=== PATIENT | female | born 1960 | race Caucasian/White ===

== ENCOUNTER 2024-06-17 16:26 | Observation (INO) | payer OTHER, MEDICARE ==
[~2024-06-17] VITALS: Ht 160 cm; Wt 84.3 kg
[~2024-06-17 16:26] MED LIST: NITR100 PO; OMEP20ER PO
[2024-06-17] MEDS ORDERED: NS 1,000 ML IV SCH ×2 (16:35→19:10)
[2024-06-17] MEDS ORDERED: Ketorolac Tromethamine 15mg Vial IV ONE (16:35)
[2024-06-17 16:54] LABS: BASOPHILS ABSOLUTE AUTO 0.04 K/mm3 (0.00-0.23); BASOPHILS PERCENT AUTO 0 % (0-2); EOSINOPHILS ABSOLUTE AUTO 0.01 K/mm3 (0.00-0.68); EOSINOPHILS PERCENT AUTO 0 % (0-6); Hematocrit 40.4 % (33.0-51.0); IMMATURE GRAN ABSOLUTE AUTO 0.05 K/mm3 (0.00-0.10); IMMATURE GRAN PERCENT AUTO 0 % (0-1); LYMPHOCYTES ABSOLUTE AUTO 0.85 K/mm3 (0.84-5.20); LYMPHOCYTES PERCENT AUTO 6 % (21-46); MONOCYTES ABSOLUTE AUTO 0.47 K/mm3 (0.16-1.47); MONOCYTES PERCENT AUTO 3 % (4-13); Mean Corpuscular HGB 24.9 pg (26.0-34.0); Mean Corpuscular HGB Conc 32.2 g/dL (31.5-36.5); Mean Corpuscular Volume 77 fL (80-100); Mean Platelet Volume 11.9 fL (9.1-12.4); NEUTROPHILS ABSOLUTE AUTO 12.78 K/mm3 (1.96-9.15); NEUTROPHILS PERCENT AUTO 90 % (41-73); Platelet Count 255 K/mm3 (150-400); RDW Coefficient Variation 15.6 % (11.7-14.2); RDW Standard Deviation 43.3 fL (35.1-46.3); Red Blood Cell Count 5.23 M/mm3 (3.80-5.20)
[2024-06-17 17:15] LABS: Albumin, Blood 3.7 g/dL (3.4-5.0); Bilirubin, Total 0.7 mg/dL (0.1-1.0); Calcium, Blood 9.3 mg/dL (8.5-10.1); Creatinine, Blood 0.54 mg/dL (0.40-1.00); Globulin, Blood 3.7 g/dL (2.2-4.0); Total Protein, Blood 7.4 g/dL (6.4-8.2)
[2024-06-17] MEDS ORDERED: Piperacillin/Tazobactam Sod 4.5 GM in NS 100 ML IV ONE (18:00)
[2024-06-17] MEDS ORDERED: Ondansetron HCl 2 MG / ML 2ML Vial IV PRN (19:05)
[2024-06-17] MEDS ORDERED: FentaNYL Citrate 50 MCG/ML 2 ML Injection IV PRN (19:05)
[2024-06-17] MEDS ORDERED: Ampicillin Sod/Sulbactam Sod 3 GM in NS 100 ML IV SCH (19:15)
[2024-06-17 21:06] VITALS: BP 154/70
[2024-06-17] MEDS ORDERED: HYDROmorphone HCl/Pf 1MG SYR IV PRN (21:50)
[2024-06-17] MEDS ORDERED: Ondansetron HCl 2 MG / ML 2ML Vial IV ONE (22:15)
[2024-06-18] VITALS (14 sets, daily range): BP systolic 111–140; BP diastolic 47–71
[2024-06-18] MEDS ORDERED: NS 1,000 ML IV SCH (00:50)
[2024-06-18 00:54] LABS: Source, Urine Clean Catch
[2024-06-18 01:02] LABS: Bilirubin, Urine Neg (Neg); Blood, Urine Neg (Neg); Glucose Qualitative, Urine Neg (Neg); Ketones, Urine 2+ (Neg); Leukocyte Esterase, Urine Neg (Neg); Nitrite, Urine Neg (Neg); Protein, Urine 1+ (Neg); Specific Gravity, Urine 1.015 (1.003-1.022); Urobilinogen, Urine NORM (Normal)
[2024-06-18 01:23] LABS: Appearance, Urine Clear (Clear); Color, Urine Yellow (P-Yellow)
[2024-06-18 04:32] LABS: BASOPHILS ABSOLUTE AUTO 0.05 K/mm3 (0.00-0.23); BASOPHILS PERCENT AUTO 1 % (0-2); EOSINOPHILS ABSOLUTE AUTO 0.05 K/mm3 (0.00-0.68); EOSINOPHILS PERCENT AUTO 1 % (0-6); Hematocrit 35.6 % (33.0-51.0); Hemoglobin 11.2 g/dL (11.5-16.0); IMMATURE GRAN ABSOLUTE AUTO 0.03 K/mm3 (0.00-0.10); IMMATURE GRAN PERCENT AUTO 0 % (0-1); LYMPHOCYTES ABSOLUTE AUTO 1.56 K/mm3 (0.84-5.20); LYMPHOCYTES PERCENT AUTO 17 % (21-46); MONOCYTES ABSOLUTE AUTO 0.71 K/mm3 (0.16-1.47); MONOCYTES PERCENT AUTO 8 % (4-13); Mean Corpuscular HGB Conc 31.5 g/dL (31.5-36.5); Mean Corpuscular Volume 80 fL (80-100); Mean Platelet Volume 11.8 fL (9.1-12.4); NEUTROPHILS ABSOLUTE AUTO 6.72 K/mm3 (1.96-9.15); NEUTROPHILS PERCENT AUTO 74 % (41-73); Platelet Count 216 K/mm3 (150-400); RDW Coefficient Variation 15.6 % (11.7-14.2); RDW Standard Deviation 45.3 fL (35.1-46.3); Red Blood Cell Count 4.48 M/mm3 (3.80-5.20); White Blood Cell Count 9.12 K/mm3 (4.00-11.30)
[2024-06-18 04:53] LABS: Albumin, Blood 2.9 g/dL (3.4-5.0); Albumin/Globulin Ratio 0.9 (0.8-1.8); Bilirubin, Total 0.7 mg/dL (0.1-1.0); Calcium, Blood 7.9 mg/dL (8.5-10.1); Creatinine, Blood 0.67 mg/dL (0.40-1.00); Globulin, Blood 3.2 g/dL (2.2-4.0); Potassium, Blood 3.4 mmol/L (3.5-5.5); Total Protein, Blood 6.1 g/dL (6.4-8.2)
--- NOTE | 2024-06-18 05:20 | NUR ---
SHIFT SUMMARY AOX4. ADMITTED LAST NIGHT FOR ACUTE APPY. ABD TENDER, HAS 6-10/16 MID TO RUQ ABD THROBBING PAIN THAT RADIATES, MEDICATED 2x W/1MG IV DILAUDID & PT STATES PAIN RELIEF. REPORTED MIN NAUSEA, MEDICATED 1x W/ZOFRAN-NO EMESIS & NO FURTHER NAUSEA REPORTED. HAS NOT BEEN ABLE TO TOLERATE PO SINCE THURSDAY KARLEY DINNER. AWAITING POSSIBLE SURGERY TODAY. CALL LIGHT IN REACH.
[2024-06-18] MEDS ORDERED: Lactated Ringer's 1,000 ML IV SCH (08:30)
[2024-06-18] MEDS ORDERED: Bupivacaine 0.5% HCl 5 MG/ML 30MLVIAL ONE (11:45)
[2024-06-18] MEDS ORDERED: FentaNYL Citrate 50 MCG/ML 2 ML Injection ONE (12:35)
[2024-06-18] MEDS ORDERED: propofoL 20 ML IV ONE (12:35)
[2024-06-18] MEDS ORDERED: Ketorolac Tromethamine 30mg Vial ONE (12:36)
[2024-06-18] MEDS ORDERED: Rocuronium Bromide 10 MG/ML 5ML Injection IV ONE (12:36)
[2024-06-18] MEDS ORDERED: Ondansetron HCl 2 MG / ML 2ML Vial ONE (12:36)
[2024-06-18] MEDS ORDERED: Dexamethasone Sod Phos 10 MG/ML 1ML VIAL ONE (12:36)
[2024-06-18] MEDS ORDERED: HYDROmorphone HCl/Pf 1MG SYR IV PRN (12:55)
[2024-06-18] MEDS ORDERED: Prochlorperazine Edisylate 10 mg Vial IV PRN (13:00)
[2024-06-18] MEDS ORDERED: Albuterol 2.5 MG/3 ML VIAL INH PRN (13:00)
[2024-06-18] MEDS ORDERED: FentaNYL Citrate 50 MCG/ML 2 ML Injection IV PRN (13:00)
[2024-06-18] MEDS ORDERED: Sugammadex Sodium 200 MG/2ML SDV (100 MG/ML) ONE (13:07)
--- NOTE | 2024-06-18 16:20 | NUR ---
SHIFT SUMMARY A/OX4. POD 0 LAP APPY. DENIES PAIN/NAUSEA. LAP SITES C/D/I. SBA TO BATHROOM. VSS, NO ACUTE CHANGES AT THIS TIME.
[2024-06-19 04:34] VITALS: BP 161/74
[2024-06-19] MEDS ORDERED: Acetaminophen 325 MG TABLET PO PRN (05:00)
[2024-06-19 07:19] VITALS: BP 133/69
--- NOTE | 2024-06-19 07:45 | NUR ---
SHIFT SUMMARY AOX4. POD 1-LAP APPY. x3 LAP SITES W/TEGADERM & GAUZE, MIN SEROSANGUINOUS DRAINAGE ON BANDAGES. REPORTS MIN PAIN/SORENESS THIS AM & ASKED FOR TYLENOL, DR ISLAS ORDERED 650MG TYLENOL. DENIES N/V. TOLERATING MIN PO. PASSING FLATUS. VSS. EAGERLY ANTICIPATING DC HOME THIS AM. CALL LIGHT IN REACH.
[2024-06-19] MEDS ORDERED: Acetaminophen325 M1 PO (11:21)
--- NOTE | 2024-06-19 11:48 | NUR ---
DISCHARGE DISCHARGE HOME. AT BEDSIDE. IV REMOVED WITH CANNULA INTACT. DRESSING APPLIED. PT ESCORTED OUT VIA W/C. CARE ONGOING.
== END 2024-06-19 12:08 | disposition home or self-care (01) ==
LOC: ER 16:26 → SURS 16:27 → ERHOLD 16:27 → SURS 21:10
PROVIDERS: Student in an Organized Health Care Education/Training Program; Surgery; ADMIT Internal Medicine
PROC: 0DTJ4ZZ Resection of Appendix, Percutaneous Endoscopic Approach (ICD-10-PCS; principal; 2024-06-18 10:45)
DX: K35.80 Unspecified acute appendicitis (principal); K21.9 Gastro-esophageal reflux disease without esophagitis; F17.210 Nicotine dependence, cigarettes, uncomplicated; Z79.899 Other long term (current) drug therapy; Z88.5 Allergy status to narcotic agent
CPT/HCPCS: 36415; 74177; 80053; 83690; 83880; 84484; 85025; 88304; 93005; 93010; 96365-59; 96366; 96367; 96375; 96376; 99285-25; A9270; G0378; J0295; J1100; J1171; J1885; J2405; J2543; J2704; J3010; J7030; Q9967